=== PATIENT | male | born 1990 | race Hispanic/Latino ===

== ENCOUNTER 2024-06-29 08:04 | Observation (INO) | payer SELFPAY ==
[~2024-06-29] VITALS: Ht 182.9 cm; Wt 164.2 kg
[2024-06-29] MEDS ORDERED: LISINOPRIL10 MG PO (08:41)
[2024-06-29] MEDS ORDERED: OZEMPIC1 MG/0.71 (08:41)
[2024-06-29] MEDS ORDERED: METOPROLOL SUCC25 MG PO (08:41)
[2024-06-29] MEDS ORDERED: ATORVASTATIN CA20 MG PO (08:41)
[2024-06-29] MEDS: NITROGLYCERIN 0.4 MG SUBL SL ONE (09:31)
[2024-06-29] MEDS ORDERED: ONDANSETRON HCL INJ 2MG/ML 2ML 2 MG/ML VIAL IV PRN (12:15)
[2024-06-29] MEDS ORDERED: Morphine 4mg INJECTION 4 MG/ML INJ IV PRN (12:15)
[2024-06-29] MEDS: ASPIRIN 325 MG TAB PO ONE (12:22)
[2024-06-29 13:14] VITALS: PULSE 97; RESP 18; TEMP 98.2
[2024-06-29 15:57] VITALS: BP 114/69; O2SAT 98
[2024-06-29 16:13] VITALS: BP 137/86; PULSE 63; RESP 18; TEMP 98; O2SAT 100
[2024-06-29] MEDS ORDERED: IOPAMIDOL 370 MG/ML 100 ML INFUS..BTL INJ ONE (19:06)
[2024-06-29] MEDS: ATORVASTATIN 20 MG TAB PO SCH (20:36)
[2024-06-29 21:00] VITALS: BP 131/72; PULSE 66; RESP 18; TEMP 98; O2SAT 100
[2024-06-29 21:07] VITALS: BP 131/72; RESP 18; TEMP 98; O2SAT 100
[2024-06-30 00:45] VITALS: BP 132/66; PULSE 63; RESP 18; TEMP 98.6; O2SAT 98
[2024-06-30 04:51] VITALS: BP 132/69; PULSE 87; RESP 18; TEMP 98.7; O2SAT 100
[2024-06-30 05:23] LABS: BASOPHILS % 0.3 % (0.0-1.0); EOSINOPHILS # (AUTO) 0.2 (0.0-0.4); EOSINOPHILS % 2.6 % (0.0-6.0); HEMATOCRIT 46.4 % (38.2-49.6); HEMOGLOBIN 15.4 g/dL (14.0-18.0); LYMPHOCYTES # (AUTO) 2.2 (1.0-3.2); LYMPHOCYTES % 30.7 % (18.0-39.1); MEAN CORPUSCULAR HEMOGLOBIN 28.5 pg (28-32); MEAN CORPUSCULAR HGB CONC 33.2 g/dL (31-35); MEAN CORPUSCULAR VOLUME 85.9 fL (81-99); MONOCYTES # (AUTO) 0.6 (0.2-0.8); MONOCYTES % 8.4 % (4.4-11.3); NEUTROPHILS # (AUTO) 4.2 (2.1-6.9); NEUTROPHILS % 57.7 % (38.7-80.0); PLATELET COUNT 238 x10e3/uL (140-360); RED CELL DISTRIBUTION WIDTH 13.6 % (11.7-14.4); WHITE BLOOD COUNT 7.22 x10e3/uL (4.8-10.8)
[2024-06-30 05:52] LABS: CALCIUM 9.1 mg/dL (8.4-10.2); CREATININE, SERUM 0.71 mg/dL (0.72-1.25)
[2024-06-30] MEDS: LISINOPRIL 10 MG TAB PO SCH (09:13)
[2024-06-30] MEDS: METOPROLOL SUCCINATE 25 MG TAB XL PO SCH (09:14)
[2024-06-30 09:22] VITALS: BP 131/74; PULSE 87; RESP 18; TEMP 98.7; O2SAT 100
[2024-06-30 09:25] VITALS: BP 131/74; PULSE 67; RESP 20; TEMP 98; O2SAT 98
== END 2024-06-30 12:09 | disposition home or self-care (01) ==
LOC: FSED 08:18 → ERHOLD 12:13 → MED/SURG 13:50
PROVIDERS: ADMIT Internal Medicine; ATTEND Internal Medicine
DX: R07.9 Chest pain, unspecified (principal); R06.02 Shortness of breath; E66.01 Morbid (severe) obesity due to excess calories; Z68.42 Body mass index [BMI] 45.0-49.9, adult; E11.9 Type 2 diabetes mellitus without complications; Z79.85 Long-term (current) use of injectable non-insulin antidiabetic drugs; I10 Essential (primary) hypertension
CPT/HCPCS: 36415 ×2; 71046; 71260; 80048 ×2; 80076; 81003; 82553; 82948 ×2; 83036; 83880; 84484; 85025 ×2; 93005; 99252; 99284; G0378 ×2; J2470 ×2; Q9967